=== PATIENT | female | born 1955 | race Asian ===

== ENCOUNTER 2017-01-31 13:13 | Outpatient (CLI) | payer BC ==
[2017-01-31 14:47] VITALS: BP 126/61
--- NOTE | 2017-02-02 12:24 | General Progress Note ---
Assessment/Plan Problem List: (1) Chronic GERD ICD Codes: K21.9 - Gastro-esophageal reflux disease without esophagitis SNOMED: 06619710, 777017037 (2) Bloating ICD Codes: R14.0 - Abdominal distension (gaseous) SNOMED: 844083499 (3) Colon cancer screening ICD Codes: Z12.11 - Encounter for screening for malignant neoplasm of colon SNOMED: 526922437, 611160235 Assessment/Plan plan EGD and colonoscopy pending insurance approval Breath test to rule out SIBO Subjective ROS Limited/Unobtainable: Yes Allergies: Coded Allergies: No Known Allergies (Unverified , 07/07/15) Subjective c/o GERD for many years not responding to ppi eds screening colon exam c/o significant bloading Objective General Appearance: alert EENT: normal ENT inspection Neck: supple Cardiovascular: normal rate Respiratory/Chest: lungs clear Abdomen: normal bowel sounds, non tender, soft Extremities: non-tender NORM LIPSCOMB Feb 02, 2017 12:24
== END 2017-01-31 14:05 | disposition home or self-care (01) ==
LOC: PAN 13:13
DX: K21.9 Gastro-esophageal reflux disease without esophagitis (principal); R14.0 Abdominal distension (gaseous); Z12.11 Encounter for screening for malignant neoplasm of colon
CPT/HCPCS: 99211

== ENCOUNTER 2018-02-04 07:50 | Outpatient (CLI) | payer BC ==
[2018-02-04] MEDS ORDERED: LOSARTAN POTASS25 MG ORAL (12:11)
[2018-02-04] MEDS ORDERED: VITAMIN D1000 UNI1 ORAL (12:11)
[2018-02-04 12:12] VITALS: BP 139/78
--- NOTE | 2018-02-04 16:02 | GI Initial Consult Note ---
History of Present Illness General Date patient seen: Feb 04, 2018 Time patient seen: 15:59 Referring physician: AMADA Reason for Consultation: ABDOMINAL PAIN Present Illness HPI This is a 62 year old female patient who presents today for routine screening colonoscopy and evaluation of abdominal pain. The patient presents with epigastric pain, stating that it radiates to her back especially after eating a meal. She has been on PPI's in the past. In addition, she has abdominal bloating or fullness. She recently had an US done, and per Dr. Smith stated no surgery was needed at this time. CT was mainly unremarkable, showed only gallstones. H. Pylori breath test was negative. Denies any unintentional weight loss or changes in dietary habits. No signs of abuse or neglect. Patient is not fall risk. PAST MEDICAL HISTORY: 1. Hypertension. 2. Gallstones. PAST SURGICAL HISTORY: 1. . 2. Hysterectomy. 3. Left breast biopsy. MEDICATION: Losartan. ALLERGIES: No known allergy. SOCIAL HISTORY: Denies any tobacco, alcohol, or drug abuse. She is unmarried, nurse, working at [employer]. FAMILY HISTORY: Father with diagnosis of pancreatic cancer. Home Meds Reported Medications Cholecalciferol (Vitamin D3)* (VITAMIN D*) 1,000 Unit Tablet, 1000 UNIT ORAL DAILY, #30 TAB 02/04/18 Losartan Potassium* (LOSARTAN POTASSIUM*) 25 Mg Tablet, 25 MG ORAL BID, TAB 02/04/18 Allergies: Coded Allergies: No Known Allergies (Unverified , 07/07/15) Review of Systems All Other Systems: negative except mentioned in HPI Physical Exam Vital Signs Date Time Temp Pulse Resp B/P (MAP) Pulse Ox O2 Delivery O2 Flow Rate FiO2 02/04/18 12:12 97.4 76 18 139/78 98 97.4 Sp02 EP Interpretation: reviewed, normal General Appearance: well appearing, no apparent distress, alert Head: normocephalic EENT: PERRL/EOMI, normal ENT inspection Neck: supple Respiratory: normal breath sounds, no respiratory distress Cardiovascular: normal rate Gastrointestinal: normal inspection, non tender, soft, normal bowel sounds, non -distended Rectal: deferred Genitourinary: no CVA tenderness Musculoskeletal: normal inspection, back normal Neurologic: normal inspection, alert, oriented x3, responsive Psychiatric: normal inspection, judgement/insight normal, memory normal Skin: normal inspection, normal color, no rash, warm/dry, palpation normal, well hydrated Lymphatic: normal inspection, no adenopathy GI: Plan Problems: (1) Bloating (2) Colon cancer screening (3) Chronic GERD Plan EGD/colonoscopy to be schedule pending prior authorization. - CLD & (Nulytely/Suprep/Movi-Prep) prep instructions given and acknowledged by patient. - NPO @ [place] day prior procedure explained. Discussed with Dr. Tolliver. Thank you for this patient referral, we will follow. The patient was seen and examined at bedside and all new and available data was reviewed in the patients chart. I agree with the above findings, impression and plan. (Patient seen earlier today. Signature stamp does not reflect patient encounter time.). - MD [facility] Feb 04, 2018 16:02
== END 2018-02-04 08:23 | disposition home or self-care (01) ==
LOC: PAN 07:50
DX: R10.9 Unspecified abdominal pain (principal); I10 Essential (primary) hypertension; Z90.710 Acquired absence of both cervix and uterus; K21.9 Gastro-esophageal reflux disease without esophagitis; R14.0 Abdominal distension (gaseous)
CPT/HCPCS: 99211

== ENCOUNTER 2018-03-21 12:51 | Outpatient (CLI) | payer BC ==
[~2018-03-21 12:51] MED LIST: LOSARTAN POTASS25 MG ORAL; VITAMIN D1000 UNI1 ORAL
[2018-03-21 14:00] VITALS: BP 132/72
[2018-03-21] MEDS ORDERED: DEXILANT60 MG ORAL (15:47)
[2018-03-22] MEDS ORDERED: EC MATRIXX TAB1 EACH PO (10:43)
== END 2018-03-21 13:21 | disposition home or self-care (01) ==
LOC: PAN 12:51
DX: K92.1 Melena (principal); K25.9 Gastric ulcer, unspecified as acute or chronic, without hemorrhage or perforation; R14.0 Abdominal distension (gaseous); I10 Essential (primary) hypertension; Z87.442 Personal history of urinary calculi; Z90.710 Acquired absence of both cervix and uterus
CPT/HCPCS: G0463

== ENCOUNTER 2018-12-17 07:27 | Emergency (ER) | payer BC ==
[~2018-12-17] VITALS: Ht 160 cm; Wt 63.5 kg
[~2018-12-17 07:27] MED LIST changes: +DEXILANT60 MG ORAL; +EC MATRIXX TAB1 EACH PO
[2018-12-17] MEDS ORDERED: OMEPRAZOLE20 M2 ORAL (07:35)
--- NOTE | 2018-12-17 07:37 | NUR ---
ED Nurse Note: Pt came in from home due to L upper back pain x 3 days. No recent injury noted. Full ROM. AOx4, High BP at this time, ERMD aware. Will cont to monitor.
--- NOTE | 2018-12-17 07:54 | Emergency Room Report ---
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 She states that a few days ago she developed pain and tenderness in her left shoulder and left upper back. She states that the area feels tense and sore. She states that she did not have any trauma. She has a history of a similar episode about a year ago. She states that at times it will cause pain in her arm. She currently does not have any pain in her arm. She denies weakness. She denies tingling or numbness. She denies neck pain. She denies headache. She denies recent illness. She denies fever or chills. She denies chest pain or shortness of breath. She has no other complaints. Allergies: Coded Allergies: No Known Allergies (Unverified , 07/07/15) Patient History Past Medical History: see triage record, HTN, GERD, other - Anemia Past Surgical History: hysterectomy Social History: Denies: smoking, alcohol use, drug use Reviewed Nursing Documentation: PMH: Agreed; PSxH: Agreed Nursing Documentation-PMH Hx Cardiac Problems: Yes Hx Hypertension: Yes Hx Cancer: No Hx Gastrointestinal Problems: Yes Hx Neurological Problems: No Review of Systems All Other Systems: negative except mentioned in HPI Physical Exam Vital Signs Date Time Temp Pulse Resp B/P (MAP) Pulse Ox O2 Delivery O2 Flow Rate FiO2 12/17/18 07:30 98.2 67 18 189/92 (124) 98 Room Air Sp02 EP Interpretation: reviewed, normal General Appearance: no apparent distress, alert, GCS 15, non-toxic Head: normocephalic, atraumatic Eyes: bilateral eye normal inspection, bilateral eye PERRL ENT: hearing grossly normal, normal pharynx, no angioedema, normal voice Neck: full range of motion, supple/symm/no masses Respiratory: no respiratory distress, no retraction, no accessory muscle use, speaking full sentences Rectal: deferred Musculoskeletal: gait/station normal, normal range of motion, tender Neurologic: alert, oriented x3, responsive, motor strength/tone normal, sensory intact, speech normal Psychiatric: judgement/insight normal, memory normal, mood/affect normal, no suicidal/homicidal ideation Skin: normal color, no rash, warm/dry, well hydrated Medical Decision Making Diagnostic Impression: Primary Impression: Trapezius muscle spasm ER Course This patient has a clinical presentation consistent with trapezius muscle spasm. There are no red flags on physical exam or history that would make me concerned for underlying fracture. Therefore, I do not feel that I need to obtain imaging studies. The patient has pain with range of motion and has tenderness to palpation along the muscle. There is no evidence of compartment syndrome. There is no neurologic deficit. The patient was instructed on supportive home measures. No emergency medical condition was identified. The patient was given return precautions and followup instructions. Last Vital Signs Date Time Temp Pulse Resp B/P (MAP) Pulse Ox O2 Delivery O2 Flow Rate FiO2 12/17/18 07:30 98.2 67 18 189/92 (124) 98 Room Air Status: improved Disposition: HOME, SELF-CARE Condition: Improved Referrals: Opal Cho MD (PCP) Shira Soares DO Dec 17, 2018 07:54
[2018-12-17] MEDS ORDERED: Ketorolac 60mg Inj IM ONE (08:00)
[2018-12-17] MEDS ORDERED: IBUPROFEN600 MG ORAL (08:08)
[2018-12-17] MEDS ORDERED: CYCLOBENZAPRINE10 MG ORAL (08:08)
[2018-12-17] MEDS ORDERED: LIDODERM700 M1 TOPIC (08:08)
[2018-12-17 08:22] VITALS: BP 153/91
[2018-12-17 08:25] VITALS: BP 153/91
--- NOTE | 2018-12-17 08:25 | NUR ---
ER DISCHARGE NOTE: Patient is cleared to be discharged per ERMD, pt is aox4, on room air, with stable vital signs. pt was given dc and prescription instructions, pt was able to verbalize understanding, pt id band removed. pt is able to ambulate with steady gait. pt took all belongings.
== END 2018-12-17 08:25 | disposition home or self-care (01) ==
LOC: EMR 07:40
DX: M62.838 Other muscle spasm (principal); I10 Essential (primary) hypertension; M54.6 Pain in thoracic spine; K21.9 Gastro-esophageal reflux disease without esophagitis; Z90.710 Acquired absence of both cervix and uterus
CPT/HCPCS: 96372; 99283

== ENCOUNTER 2019-06-06 05:49 | Day surgery (SDC) | payer BC ==
[2019-06-06] VITALS (9 sets, daily range): BP systolic 115–134; BP diastolic 64–76
[~2019-06-06] VITALS: Ht 160 cm; Wt 62.1 kg
[~2019-06-06 05:49] MED LIST changes: +CYCLOBENZAPRINE10 MG ORAL; +IBUPROFEN600 MG ORAL; +LIDODERM700 M1 TOPIC; +OMEPRAZOLE20 M2 ORAL
[2019-06-06] MEDS ORDERED: oxyCONTIN 20mg tab PO ONE (06:00)
[2019-06-06] MEDS ORDERED: ceFAZolin sod 1gm in D5W 55ml IVPB ONE (06:00)
[2019-06-06] MEDS ORDERED: Bupivacaine 0.5% Inj 30 ml vial INJ ONE (06:40)
[2019-06-06] MEDS ORDERED: LR 1000ml 1,000 ML IVLG SCH (06:41)
--- NOTE | 2019-06-06 06:41 | Anethesia Preoperative Eval ---
Anesthesia Pre-op PMH/ROS General Date of Evaluation: Jun 06, 2019 Anesthesiologist: Tristen ASA Score: ASA 2 Mallampati Score Class I : Soft palate, uvula, fauces, pillars visible Class II: Soft palate, uvula, fauces visible Class III: Soft palate, base of uvula visible Class IV: Only hard plate visible Mallampati Classification: Class II Surgeon: Louie Diagnosis: Left thumb ganglion cyst Surgical Procedure: Left thumb ganglion cyst excision Anesthesia History: none Family History: no anesthesia problems Allergies: Coded Allergies: SULFA (SULFONAMIDE ANTIBIOTICS) (Verified Allergy, Severe, rashes, ) Medications: see eMAR Patient NPO?: Yes NPO Date: Jun 05, 2019 NPO Time: 22:00 Past Medical History Cardiovascular: Reports: HTN; Denies: CAD, [place], valve dz, arrhythmia, other Pulmonary: Denies: asthma, COPD, PIPE, other Gastrointestinal/Genitourinary: Reports: GERD; Denies: CRI, ESRD, other Neurologic/Psychiatric: Denies: dementia, CVA, depression/anxiety, TIA, other Endocrine: Denies: DM, hypothyroidism, steroids, other HEENT: Denies: cataract (L), cataract (R), glaucoma, TUOLUMNE (L), TUOLUMNE (R), other Hematology/Immune: Reports: anemia - chroic; Denies: DVT, bleeding disorder, other Musculoskeletal/Integumentary: Reports: OA; Denies: RA, DJD, DDD, edema, other PSxH Narrative: c/s, hysterectomy Anesthesia Pre-op Phys. Exam Physician Exam Last Vital Signs Date Time Temp Pulse Resp B/P (MAP) Pulse Ox O2 Delivery O2 Flow Rate FiO2 06/06/19 06:22 98.0 62 18 132/76 99 Room Air Constitutional: NAD Cardiovascular: RRR Respiratory: CTA Airway Exam Mallampati Score: Class II ROM: full Anesthesia Pre-op A/P Labs see chart Studies Pre-op Studies: EKG - sr Risk Assessment & Plan Assessment: ASA II Plan: MAC Status Change Before Surgery: No Pre-Antibiotics Drug: ANcef 1g Given Within 1 Hr of Incision: Yes Melani Alexander MD Jun 06, 2019 06:41
[2019-06-06] MEDS ORDERED: NS Irrig 1000ml IRRIG ONE ×3 (06:44→07:55)
[2019-06-06] MEDS ORDERED: Midazolam 2mg/2ml Inj IVP PRN (06:45)
[2019-06-06] MEDS ORDERED: Ketorolac 30mg Inj IV PRN (06:45)
[2019-06-06] MEDS ORDERED: Hydromorphone 0.5mg/0.5ml inj IVP PRN (06:45)
[2019-06-06] MEDS ORDERED: LORazepam Inj 2mg/ml 1ml IV PRN (06:45)
[2019-06-06] MEDS ORDERED: DiphenhydrAMINE 50mg/ml Inj IVP PRN (06:45)
[2019-06-06] MEDS ORDERED: fentaNYL 100 mcg/2 mL IV PRN (06:45)
[2019-06-06] MEDS ORDERED: Lidocaine 1% MPF 10mg/ml 5ml ONE (06:57)
[2019-06-06] MEDS ORDERED: Propofol 200mg/20ml IV ONE (06:57)
[2019-06-06] MEDS ORDERED: Midazolam 2mg/2ml Inj ONE (06:57)
[2019-06-06] MEDS ORDERED: fentaNYL 100 mcg/2 mL IV ONE (06:57)
[2019-06-06] MEDS ORDERED: LR 1000ml ONE (07:36)
[2019-06-06] MEDS ORDERED: NS Irrig 1000ml ONE (07:36)
[2019-06-06] MEDS ORDERED: Sterile Water Irrig 1000ml IRRIG ONE (07:36)
--- NOTE | 2019-06-06 07:42 | Pre-Procedure Note/Attestation ---
Pre-Procedure Note/Attestation Complete Prior to Procedure Planned Procedure: left Procedure Narrative: excision of ganglion cyst Indications for Procedure Pre-Operative Diagnosis: left thumb ganglion cyst Attestation I attest that I discussed the nature of the procedure; its benefits; risks and complications; and alternatives (and the risks and benefits of such alternatives ), prior to the procedure, with the patient (or the patient's legal union representative). I attest that, if there was a reasonable possibility of needing a blood transfusion, the patient (or the patient's legal union representative) was given the [facility] standardized written summary, pursuant to the Skinny Priyanka Blood Safety Act ([place] Health and Safety Code # 1645, as amended). I attest that I re-evaluated the patient just prior to the surgery and that there has been no change in the patient's H&P, except as documented below: Nemesio Palma MD Jun 06, 2019 07:42
--- NOTE | 2019-06-06 07:43 | Operative Note - PDOC ---
Operative Note Operative Note Pre-op Diagnosis: left thumb ganglion cyst Procedure: see op report Post-op Diagnosis: same as pre-op plus Operative Findings: consistent w/pre-op dx studies Anesthesia: MAC Specimen: none Complications: none Condition: stable Estimated Blood Loss: none Implant(s) used?: No Nemesio Palma MD Jun 06, 2019 07:43
[2019-06-06] MEDS ORDERED: D5 1/2NS 1,000 ML IV SCH (07:45)
[2019-06-06] MEDS ORDERED: Tylenol #3 tab (300mg/30mg) ORAL PRN (07:45)
[2019-06-06] MEDS ORDERED: HYDROmorphone 1mg/ml Carpuject SUBQ PRN (07:45)
[2019-06-06] MEDS ORDERED: HYDROcodone/Acetamin 5/325 tab ORAL PRN (07:45)
[2019-06-06] MEDS ORDERED: Ketorolac 30mg Inj ONE (07:47)
--- NOTE | 2019-06-06 08:25 | 48 Hour Post Anesthesia Eval ---
Post Anesthesia Evaluation Procedure: Left thumb ganglion cyst excision Date of Evaluation: Jun 06, 2019 Airway: patent Nausea: No Vomiting: No Hydration Status: adequate Cardiopulmonary Status: at baseline Mental Status/LOC: patient returned to baseline Post-Anesthesia Complications: 0 Follow-up care needed: ready to discharge Melani Alexander MD Jun 06, 2019 08:25
--- NOTE | 2019-06-06 08:25 | Immediate Post-Op Evaluation ---
Immediate Post-Op Evalulation Immediate Post-Op Evalulation Procedure: Left thumb ganglion cyst excision Date of Evaluation: Jun 06, 2019 Time of Evaluation: 08:27 IV Fluids: 400 Blood Products: 0 Estimated Blood Loss: min Urinary Output: 0 Blood Pressure Systolic: 123 Blood Pressure Diastolic: 75 Pulse Rate: 58 Respiratory Rate: 16 O2 Sat by Pulse Oximetry: 100 Temperature (Fahrenheit): 97.5 Pain Score (1-10): 0 Nausea: No Vomiting: No Complications 0 Patient Status: awake, reacts, patent, none Hydration Status: adequate Drug: Ancef 1g Given Within 1 Hr of Incision: Yes Melani Alexander MD Jun 06, 2019 08:25
--- NOTE | 2019-06-06 16:45 | Operative Note - Dictated ---
DATE OF OPERATION: 06/06/2019 PREOPERATIVE DIAGNOSIS: Left thumb interphalangeal joint ganglion cyst. POSTOPERATIVE DIAGNOSIS: Left thumb interphalangeal joint ganglion cyst. PROCEDURE: Excision of left thumb ganglion cyst. SURGEON: Nemesio Palma M.D. ANESTHESIA: MAC. INDICATION FOR PROCEDURE: The patient is a pleasant female who has progressive swelling, consistent with ganglion cyst. She failed attempted aspiration of the cyst given there was tension along the skin. Open excision was reasonable. Risks, limitations, expectations, and complications of procedure were discussed in detail. All questions were addressed. DESCRIPTION OF PROCEDURE: After informed consent was obtained, the patient was brought to the operating room. The patient was placed under general anesthesia. Left arm was prepped and draped in a sterile manner. Ancef was administered. Time-out was performed. Skin incision along the dorsal extending laterally was made. The ganglion cyst was clipped, it was dissected free. Once the entirety of the cyst was excised, the wound was copiously irrigated. The skin was approximated using nylon sutures. Steri-Strips and a sterile dressing were applied. The patient was awoken and taken to recovery room with stable vital signs. ESTIMATED BLOOD LOSS: None. COMPLICATIONS: None. SPECIMENS: None. IMPLANTS: None. Nemesio Palma M.D. DR: RADHAMES JOB#: [id number] CC:
== END 2019-06-06 09:40 | disposition home or self-care (01) ==
LOC: SUR 05:49
DX: M67.442 Ganglion, left hand (principal); Z88.0 Allergy status to penicillin; I10 Essential (primary) hypertension; K21.9 Gastro-esophageal reflux disease without esophagitis; M19.90 Unspecified osteoarthritis, unspecified site; Z90.710 Acquired absence of both cervix and uterus
CPT/HCPCS: 26160; J0690; J1885; J2250; J2704; J3010; J3490; J7120; 94003; 94150